=== PATIENT | female | born 1965 | race Caucasian/White ===

== ENCOUNTER → 2016-07-16 | Outpatient (CLI) | payer OTHER ==
[~2016-07-16] MED LIST: AMBI10TA PO; CALCTAB8 PO; CELE40TA PO; CONC54TA4 PO; FLUT1SPR5 EACH NARE; FOLI1TAB4 PO; LACT10SO PO; LEVO150T7 PO; MAGN500T4 PO; PROZ20CA11 PO; PROZ40CA PO; VITA10002 PO
[2016-07-16 08:13] LABS: HEMATOCRIT 33.9 % (35.0-46.0); MEAN CELL VOLUME 87.8 FL (80.0-100.0); MEAN CORPUSCULAR HEMOGLOBIN 29.8 PG (27.0-34.0); MEAN CORPUSCULAR HGB CONC 33.9 % (32.0-36.0); PLATELET COUNT 199 TH/MM3 (150-450); RED BLOOD COUNT 3.86 MIL/MM3 (4.00-5.30); RED CELL DISTRIBUTION WIDTH 14.9 % (11.6-17.2); REVIEW FLAG FINAL; WHITE BLOOD COUNT 4.2 TH/MM3 (4.0-11.0)
[2016-07-16 09:06] LABS: ALKALINE PHOSPHATASE 54 U/L (45-117); ALT (GPT) 34 U/L (10-53); ANION GAP 6 MEQ/L (5-15); AST (GOT) 19 U/L (15-37); BICARBONATE 27.6 MEQ/L (21.0-32.0); BLOOD UREA NITROGEN 11 MG/DL (7-18); CHLORIDE 107 MEQ/L (98-107); FERRITIN 7 NG/ML (8-252); GLOMERULAR FILTRATION RATE 71 ML/MIN (>89); GLUCOSE,FASTING 107 MG/DL (74-99); HDL CHOLESTEROL 57.7 MG/DL (40.0-60.0); LDL CHOLESTEROL 78 MG/DL (0-99); POTASSIUM 3.8 MEQ/L (3.5-5.1); SODIUM (NA) 141 MEQ/L (136-145); TOTAL BILIRUBIN ADULT 0.4 MG/DL (0.2-1.0); TRANSFERRIN IRON PROFILE 267 MG/DL (200-360)
[2016-07-19 17:54] LABS: ALPHA-TOCOPHEROL 9.7 mg/L (5.7-19.9); BETA-GAMMA-TOCOPHEROL 1.9 mg/L (< 4.3)
== END ==
LOC: CLAB 07:39
PROVIDERS: ATTEND Surgery
DX: R79.0 Abnormal level of blood mineral (principal); E78.5 Hyperlipidemia, unspecified; E83.51 Hypocalcemia; E83.42 Hypomagnesemia; E03.9 Hypothyroidism, unspecified; E88.09 Other disorders of plasma-protein metabolism, not elsewhere classified; Z98.84 Bariatric surgery status
CPT/HCPCS: 36415; 80053; 80061; 82306; 82607; 82728; 82746; 83540; 83550; 83970; 84134; 84446; 84590; 85027

== ENCOUNTER → 2016-10-17 | Outpatient (CLI) | payer OTHER ==
[~2016-10-17] VITALS: Ht 170.2 cm; Wt 96.3 kg
[~2016-10-17] MED LIST changes: +CHLORHEXIDINE GLUCONATE 2 % 1 PACK (2 CLOTHS) TOPICAL PRN; +INSULIN HUMAN REGULAR 1,000 UNITS/10 ML VIAL SQ PRN; +LACTATED RINGER'S 1000 ML IV PRN; +METOPROLOL TARTRATE 25 MG TAB PO PRN; +POVIDONE IODINE 5% (ANTISEPSIS KIT) 4 APPLICATIONS EACH NARE PRN; +PROPOFOL 200 MG/20 ML AMP IV ONE; +SODIUM CHLORID 0.9% 500 ML IV PRN
[2016-10-17 09:23] VITALS: BP 111/64; PULSE 58; RESP 20; TEMP 98.8; O2SAT 99
--- NOTE | 2016-10-17 10:35 | GIPROC ---
[facility] [address] [facility]. [facility], [address] COLONOSCOPY PROCEDURE REPORT EXAM DATE: 10/17/2016 PATIENT NAME: Cecilia Campbell MR #: [id number] BIRTHDATE: 1965 ENDOSCOPIST: Loida Todd MD ORDER #: [id number] DEMOGRAPHER: Rodrigo Leon and Nila López STATUS: outpatient INDICATIONS: The patient is a 51 yr old female here for a colonoscopy due to constipation, hem positive stool PROCEDURE PERFORMED: Colonoscopy, diagnostic MEDICATIONS: Per Anesthesia and None. PREP QUALITY: fair PREP TYPE:GoLytely ESTIMATED BLOOD LOSS: None CONSENT: The patient understands the risks and benefits of the procedure and understands that these risks include, but are not limited to: sedation, allergic reaction, infection, perforation and/or bleeding. Alternative means of evaluation and treatment include, among others: physical exam, x-rays, and/or surgical intervention. The patient elects to proceed with this endoscopic procedure. medical equipment was checked for proper function. Hand hygiene and appropriate measures for infection prevention was taken. After the risks, benefits and alternatives of the procedure were thoroughly explained, Informed consent was verified, confirmed and timeout was successfully executed by the treatment team. A digital exam revealed hemorrhoids The New [id number] (Std Gastro) endoscope was introduced through the anus and advanced to the cecum, which was identified by both the appendix and ileocecal valve. The instrument was then slowly withdrawn as the colon was fully examined. COLON FINDINGS: The colonic mucosa appeared normal. Retroflexed views revealed internal hemorrhoids and Retroflexed views revealed small internal hemorrhoids The scope was then completely withdrawn from the patient and the procedure terminated. PROCEDURE WITHDRAWAL TIME:6minutes ADVERSE EVENTS: There were no complications. IMPRESSIONS: 1. The colonic mucosa appeared normal 2. Retroflexed views revealed internal hemorrhoids 3. Retroflexed views revealed small internal hemorrhoids 4. Revealed hemorrhoids RECOMMENDATIONS: 1. Benefiber 2 tsp daily 2. High fiber diet 3. Yearly rectal exams 4. Repeat stool test for occult blood RECALL: Return 5 years Colonoscopy Loida Todd MD eSigned: Loida Todd MD 10/17/2016 10:34 AM cc:
[2016-10-17 10:38] VITALS: BP 112/51; PULSE 53; RESP 16; TEMP 98.6; O2SAT 100
== END ==
LOC: HEND 08:48
PROVIDERS: ATTEND Internal Medicine Gastroenterology
DX: K64.4 Residual hemorrhoidal skin tags (principal); K64.8 Other hemorrhoids; K59.00 Constipation, unspecified; K62.5 Hemorrhage of anus and rectum

== ENCOUNTER → 2017-01-27 | Outpatient (CLI) | payer OTHER ==
[~2017-01-27] MED LIST changes: -CELE40TA PO; -CHLORHEXIDINE GLUCONATE 2 % 1 PACK (2 CLOTHS) TOPICAL PRN; -FLUT1SPR5 EACH NARE; -INSULIN HUMAN REGULAR 1,000 UNITS/10 ML VIAL SQ PRN; -LACTATED RINGER'S 1000 ML IV PRN; -METOPROLOL TARTRATE 25 MG TAB PO PRN; -POVIDONE IODINE 5% (ANTISEPSIS KIT) 4 APPLICATIONS EACH NARE PRN; -PROPOFOL 200 MG/20 ML AMP IV ONE; -PROZ20CA11 PO; -SODIUM CHLORID 0.9% 500 ML IV PRN
[2017-01-27 11:41] LABS: HEMATOCRIT 35.8 % (35.0-46.0); MEAN CELL VOLUME 91.6 FL (80.0-100.0); MEAN CORPUSCULAR HEMOGLOBIN 30.4 PG (27.0-34.0); MEAN CORPUSCULAR HGB CONC 33.2 % (32.0-36.0); PLATELET COUNT 190 TH/MM3 (150-450); RED BLOOD COUNT 3.91 MIL/MM3 (4.00-5.30); REVIEW FLAG FINAL; WHITE BLOOD COUNT 4.2 TH/MM3 (4.0-11.0)
[2017-01-27 12:15] LABS: ANION GAP 8 MEQ/L (5-15); AST (GOT) 18 U/L (15-37); BLOOD UREA NITROGEN 10 MG/DL (7-18); CHLORIDE 111 MEQ/L (98-107); GLOMERULAR FILTRATION RATE 81 ML/MIN (>89); GLUCOSE,FASTING 124 MG/DL (74-99); SODIUM (NA) 143 MEQ/L (136-145)
[2017-01-27 12:40] LABS: ALKALINE PHOSPHATASE 53 U/L (45-117); ALT (GPT) 33 U/L (10-53); FERRITIN 12 NG/ML (8-252); HDL CHOLESTEROL 52.8 MG/DL (40.0-60.0); LDL CHOLESTEROL 74 MG/DL (0-99); TOTAL BILIRUBIN ADULT 0.4 MG/DL (0.2-1.0); TRANSFERRIN IRON PROFILE 258 MG/DL (200-360)
[2017-01-30 03:52] LABS: VITAMIN B6 2.7 ng/mL (2.1-21.7)
[2017-01-30 19:52] LABS: ALPHA-TOCOPHEROL 11.1 mg/L (5.7-19.9); BETA-GAMMA-TOCOPHEROL 1.6 mg/L (< 4.3)
== END ==
LOC: CLAB 10:21
PROVIDERS: ATTEND Nurse Practitioner
DX: R79.0 Abnormal level of blood mineral (principal); D64.9 Anemia, unspecified; J45.909 Unspecified asthma, uncomplicated; E78.5 Hyperlipidemia, unspecified; K90.9 Intestinal malabsorption, unspecified; E88.09 Other disorders of plasma-protein metabolism, not elsewhere classified; E03.9 Hypothyroidism, unspecified; E66.9 Obesity, unspecified; Z98.84 Bariatric surgery status; Z71.3 Dietary counseling and surveillance
CPT/HCPCS: 36415; 80053; 80061; 82306; 82525; 82607; 82728; 82746; 83540; 83550; 84134; 84207; 84425; 84443; 84446; 84590; 84630; 85027

== ENCOUNTER → 2017-06-18 | Outpatient (CLI) | payer OTHER ==
[~2017-06-18] MED LIST changes: +LEVO175T2 PO
[2017-06-18 14:02] LABS: HEMOGLOBIN A1a 0.7 %; HEMOGLOBIN A1b 0.5 %; HEMOGLOBIN Ao 87.6 %; HEMOGLOBIN F 0.8 %; HEMOGLOBIN LA1C 1.9 %; HEMOGLOBIN P3 3.2 %
== END ==
LOC: CLAB 08:00
PROVIDERS: ATTEND Nurse Practitioner
DX: R73.01 Impaired fasting glucose (principal); E03.9 Hypothyroidism, unspecified
CPT/HCPCS: 36415; 83036; 84443

== ENCOUNTER → 2017-09-02 | Outpatient (CLI) | payer OTHER ==
[~2017-09-02] MED LIST changes: -LEVO150T7 PO
[2017-09-02 10:04] LABS: HEMATOCRIT 34.3 % (35.0-46.0); HEMOGLOBIN 11.8 GM/DL (11.6-15.3); MEAN CELL VOLUME 90.9 FL (80.0-100.0); MEAN CORPUSCULAR HEMOGLOBIN 31.4 PG (27.0-34.0); MEAN CORPUSCULAR HGB CONC 34.5 % (32.0-36.0); MEAN PLATELET VOLUME 8.6 FL (7.0-11.0); PLATELET COUNT 216 TH/MM3 (150-450); RED BLOOD COUNT 3.77 MIL/MM3 (4.00-5.30); RED CELL DISTRIBUTION WIDTH 15.4 % (11.6-17.2); WHITE BLOOD COUNT 4.5 TH/MM3 (4.0-11.0)
== END ==
LOC: CLAB 09:40
PROVIDERS: ATTEND Family Medicine
DX: D50.9 Iron deficiency anemia, unspecified (principal); E03.9 Hypothyroidism, unspecified
CPT/HCPCS: 36415; 84443; 85027

== ENCOUNTER → 2017-10-12 | Outpatient (CLI) | payer OTHER | LOC: CLAB 09:49 | PROVIDERS: ATTEND Family Medicine | DX: E03.9 Hypothyroidism, unspecified (principal) | CPT/HCPCS: 36415; 84443 ==